=== PATIENT | female | born 1970 | race Caucasian/White ===

== ENCOUNTER 2017-04-21 08:21 | Inpatient (IN) ==
--- NOTE | 2017-04-21 09:53 | Emergency Department Report ---
General Adult HPI - General Chief complaint: Medical Emergency Stated complaint: Migraine, Arm Discoloration Time Seen by Provider: 04/21/17 08:54 Source: patient Mode of arrival: ambulatory Limitations: no limitations - History of Present Illness HPI narrative: 46-year-old female presents to the emergency department with the chief complaint of a typical migraine headache as well as erythema to the left upper extremity. Patient states she has been experiencing a typical dull moderate generalized migraine headache for the past 3 days. No radiation. The patient awoke this morning she noted erythema encompassing the majority of her left upper extremity. She denies any injury or trauma. No other complaints or associated symptoms. Symptoms have been persistent in nature since onset. Patient was at home when the symptoms began. Patient notes that the arm is tender and warm to palpation. Pain in the upper extremity increases with direct palpation. - Related Data Home Medications Medication Instructions Recorded Confirmed Duloxetine HCl [Cymbalta] 60 mg PO BID #0 10/30/12 04/21/17 Pregabalin Cap [Lyrica] 150 mg PO BID #0 10/30/12 04/21/17 Amitriptyline HCl 100 mg PO DAILY #0 tab 02/08/17 04/21/17 Aspirin [Aspir 81] 81 mg PO DAILY #0 02/08/17 04/21/17 Clopidogrel Bisulfate [Plavix] 75 mg PO DAILY #0 tab 02/08/17 04/21/17 Esomeprazole [NEXIUM 20 mg Capsule] 20 mg PO DAILY #0 tab 02/08/17 04/21/17 Furosemide [Lasix] 20 mg PO DAILY #0 tab 02/08/17 04/21/17 Metformin HCl 500 mg PO DAILY #0 tab 02/08/17 04/21/17 Oxycodone HCl/Acetaminophen 1 - 2 tab PO Q4H PRN #0 tab 02/08/17 04/21/17 [Oxycodone-Acetaminophen 5-325] Potassium Chloride 10 meq PO DAILY #0 cap 02/08/17 04/21/17 Tamoxifen Citrate 20 mg PO DAILY #0 02/08/17 04/21/17 Ascorbic Acid [Vitamin C] 250 mg PO DAILY #0 02/24/17 04/21/17 Multivitamin [Multi-Vitamin Daily] 1 tab PO DAILY #0 02/24/17 04/21/17 Cholecalciferol [Vitamin D-3] 1 tab PO DAILY 04/21/17 04/21/17 Cyclobenzaprine [Flexeril] 10 mg PO TID 04/21/17 04/21/17 Levothyroxine Tab [Synthroid] 150 mcg PO DAILY 04/21/17 04/21/17 Magnesium Oxide [Magnesium] 400 mg PO DAILY 04/21/17 04/21/17 Melatonin 3 mg PO HS 04/21/17 04/21/17 Metoprolol Tartrate [Lopressor] 25 mg PO BIDWM 04/21/17 04/21/17 SUMAtriptan [Imitrex] 6 mg SQ PRN PRN 04/21/17 04/21/17 Tramadol [Ultram] 50 mg PO Q6H PRN 04/21/17 04/21/17 Vitamin E [Vitamin E] 400 unit PO DAILY 04/21/17 04/21/17 Allergies Allergy/AdvReac Type Severity Reaction Status Date / Time butorphanol AdvReac Mild ANXIETY Verified 04/21/17 10:15 erythromycin base AdvReac Mild ABDOMINAL Verified 04/21/17 10:15 PAIN Review of Systems Constitutional: Denies: fever, chills Eyes: Denies: eye pain, vision change ENT: Denies: ear pain, throat pain Cardiovascular: Denies: chest pain, dyspnea on exertion Respiratory: Denies: cough, dyspnea Gastrointestinal: Denies: abdominal pain, nausea, vomiting, diarrhea Genitourinary: Denies: urgency, dysuria Musculoskeletal: Denies: back pain, arthralgia Integumentary: Reports: erythema. Denies: rash Neurological: Reports: headache (typical). Denies: numbness Psychiatric: Denies: anxiety, depression Endocrine: Denies: fatigue, heat or cold intolerance Hematological/Lymphatic: Denies: easy bleeding, easy bruising Allergic/Immunologic: Denies: facial swelling, urticaria PFSH Patient Stated Medical History Migraine Yes Hypertension Yes Valvular Heart Disease Yes Pneumonia Yes Sleep Apnea Yes: possibly Diabetes Mellitus Type 2 Yes Other Hematologic Yes: hodgkin's lymphona in past Sepsis Yes Depression Yes Surgical History: Hysterectomy, laminectomy, mastectomy Family History: Hypertension - Social History Smoking status: Unknown if ever smoked Substance use type: does not use Alcohol intake frequency: does not drink Physical Exam - Limitations Limitations: no limitations - General General appearance: alert, in no apparent distress - Normal Exams: Head:: Normocephalic without trauma Eyes:: Pupils are PERRLA w/ EOMI, No scleral icterus, irritation, or foreign bodies noted ENMT:: No facial trauma, nasal exudates, pharyngeal erythema, or exudates are noted Dental: No fractured, loose, or missing teeth noted Neck:: Full range of motion, without adenopathy, JVD, bruits or thyromegaly Chest/Respirations:: Clear all bedoya, with good airflow, and symmetry bilaterally Cardiovascular:: Regular rate and rhythm, without murmur or gallop, Pulses 2+ all extremities, capillary refill, <2 seconds all extremities Abdomen:: Bowel sounds positive, soft, non-tender, non-distended, no hepatosplenomegaly, masses or bruits noted Lymphatic:: No lymphadenopathy, or lymphedema noted Musculoskeletal:: No tenderness, or deformity noted, good range of motion, all extremities Integumentary:: No rashes, hives, or bruising noted, hair and nails, without abnormality (left upper extremity - effusively erythematous and warm to palpation. Tender to palpation. The erythema seems to extend from approximately the wrist up to the bicep. Patient has full range of motion of the joint. Pulses are intact. Sensation intact. Capillary refill less than 2. Skin is intact. No sign of abscess. No focal bony tenderness.) Neurological:: Patient is alert, and oriented, cranial nerves, motor/sensory/ cerebellar, exams w/o gross deficits, to observation Psychiatric:: Patient exhibits, appropriate attention, emotion and affect Course Vital Signs Pulse Rate 106 H 04/21/17 08:45 Respiratory Rate 20 04/21/17 08:45 Pulse Oximetry 92 04/21/17 08:45 Temperature 96.3 F L 04/22/17 15:57 Pulse Rate 84 04/22/17 15:57 Respiratory Rate 16 04/22/17 15:57 Blood Pressure 113/65 04/22/17 15:57 Pulse Oximetry 96 04/22/17 15:57 Medical Decision Making - [facility] Narrative Medical decision making narrative: Labs / imaging were discussed in detail with the patient and questions are answered. Patient is given 1 L normal saline intravenously. She is started on Zosyn/vancomycin intravenously at 1032 when sepsis is considered secondary to cellulitis after no other cause is found. Patient's neck is supple. Patient does not require 30 mL/kg of normal saline hydration as she is not hypotensive and she does not have a lactic acid greater than 4 in the emergency Department. Patient is admitted to the hospital in improved condition. She is given analgesic pain medication with improvement of symptoms. Patient is admitted to the service of Dr. Ivey in improved condition. Patient is in agreement with the current plan of management. Accepting physician is in agreement with the current plan of management with no further orders. - Differential Diagnosis cellulitis, lymphangitis, abscess, migraine headache - Lab Data Result diagrams: 04/22/17 04:34 04/22/17 04:34 Lab Results 04/21/17 04/21/17 04/21/17 Range/Units 09:15 09:15 09:15 WBC 13.9 H (4.5-11.0) T/MM3 RBC 4.29 (4.00-5.20) M/MM3 Hgb 12.4 (12-16) GM/DL Hct 38.7 (36-46) % MCV 90.2 (80-100) UM3 MCH 28.9 (26-34) UUG MCHC 32.0 (31-37) GM/DL RDW Std Deviation 44.3 (36.9-50.2) FL Plt Count 196 (130-400) T/MM3 MPV 10.1 (9.4-12.4) UM3 Immature Gran % (Auto) 0.2 (0.0-0.5) % Neut % (Auto) 84.8 H (33-66) % Lymph % (Auto) 8.5 L (23-45) % [place] % (Auto) 6.2 (0-9.0) % Eos % (Auto) 0.2 (0-4) % Baso % (Auto) 0.1 (0-2) % Neut # 11.8 H (1.8-7.7) T/MM3 Lymph # 1.2 (1-4.8) T/MM3 [place] # 0.9 H (0-0.8) T/MM3 Eos # 0.0 (0-0.5) T/MM3 Baso # 0.0 (0-0.2) T/MM3 Abs Immat Gran (auto) 0.03 (0.00-0.03) T/MM3 Turbidity 20 (0-20) Sodium 139 (134-144) MEQ/L Potassium 4.4 (3.6-5) MEQ/L Chloride 100 (98-107) MEQ/L Carbon Dioxide 24 (22-30) MEQ/L Anion Gap 15 (5-15) MEQ/L BUN 16.0 (7-17) MG/DL Creatinine 0.8 (0.7-1.2) MG/DL GFR Calculation 78 BUN/Creatinine Ratio 20 (6-26) RATIO Glucose 168 H (65-110) MG/DL Calculated Osmolality 273 (261-280) MOSM/KG Calcium 9.3 (8.4-10.2) MG/DL Total Bilirubin 0.50 (0.20-1.30) MG/DL Icterus Index 2 (0-7) AST 34 (14-36) U/L ALT 47 (9-52) U/L Alkaline Phosphatase 107 (38-126) U/L Total Protein 7.7 (6.3-8.2) G/DL Albumin 4.5 (3.5-5.0) G/DL Globulin 3.2 (2.4-3.6) G/DL Albumin/Globulin Ratio 1.4 (1.1-2.2) RATIO Plasma Lactate 2.9 H (0.6-2.2) MMOL/L Procalcitonin < 0.05 NG/ML Specimen Hemolysis 15 (0-25) - Radiology Data L Radius/Ulna - Negative. L Humerus: Negative. LUE Duplex US: Negative. Disposition Clinical Impression: cellulitis with sepsis Disposition: 02 To [facility] Acute Care Condition: Stable Time of Disposition: 10:30 (Admit. Dr. Ivey. ) - Seen By: physician
--- NOTE | 2017-04-21 10:10 | Ultrasound Report ---
Indication: Left Arm redness for one day, R/O DVT PROCEDURE: US venous doppler UE LT: Encounter: Initial Comparison: None Technique: Color Doppler duplex and grayscale sonographic imaging of the left upper extremity was performed. FINDINGS: There is no evidence for acute deep venous thrombosis in the left arm. The left internal jugular, subclavian, axillary and paired brachial veins were evaluated; compression and augmentation were applied where possible. In addition, color and pulsed Doppler demonstrate appropriate spontaneous flow, cardiac pulsatility and variation with respiration. There is poor compressibility of an unnamed accessory vein near the proximal brachial vein that could contain thrombus. IMPRESSION: No evidence of acute DVT in the left upper extremity. Possible superficial thrombophlebitis. .
[2017-04-21] MEDS ORDERED: NS 1,000 ML IV ONE (10:15)
[2017-04-21] MEDS ORDERED: ACETAMINOPHEN 500 MG TABLET PO PRN (10:19)
--- NOTE | 2017-04-21 10:20 | XRay Report ---
Indication: CELLULITIS PROCEDURE: XR rad/uln LT 2V: Encounter: Initial Comparison: None Findings: There is no acute fracture, dislocation or malalignment identified. Impression: No acute osseous abnormality. .
--- NOTE | 2017-04-21 10:21 | XRay Report ---
Indication: cellulitis PROCEDURE: XR humerus LT: Encounter: Initial Comparison: None Findings: There is no acute fracture, dislocation or malalignment identified. Impression: No acute osseous abnormality. .
[2017-04-21] MEDS ORDERED: PIPERACILLIN/TAZOBACTAM 4.5 GM in NS 100 ML IV ONE (10:32)
[2017-04-21] MEDS ORDERED: KETOROLAC 30 MG/ML INJECTION IVP ONE (13:19)
[2017-04-21] MEDS ORDERED: PROMETHAZINE 25 MG INJECTION IVP ONE (13:21)
--- NOTE | 2017-04-21 13:27 | History & Physical Report ---
<Gaviota Matamoros - Last Filed: 04/21/17 13:55> History of Present Illness Date: Chief complaint: Fever, left arm redness HPI: Amber Hernandez is a 46 y/o lady who noticed some left arm pain before going to bed on 04/20/17. She woke up around 0300 and noticed it was bright red and was a little puffy. She had a fever and chills at home. She's also had a migraine for the last 3 days, unrelieved with her usual medications (excedrine migraine, sumatriptan, percocet, muscle relaxer). Along with her migraine, she has nausea , photophobia, and mild lightheadedness and weakness. She reports a tiny cough from the pneumonia she had a few weeks ago, but it's nonproductive and overall much improved (she was admitted to [facility] 03/31-04/03). She has an upset stomach but no pain. She hasn't been eating very well but has been trying to keep up on fluids. She has been sleeping a lot - trying to sleep off the migraine. She's having some trouble remembering details. She has generalized muscular pain secondary to fibromyalgia, which has been worse than usual. No changes in urination or bowel habits but does have some abdominal bloating. Denies rashes but she tends to bruise easily. She denies any injuries or abrasions to her left arm. In the ED, she was found to have a WBC of 13.9 and lactate of 2.9. She was febrile at 101 in the ED and was also tachycardic. Chemistries were unremarkable. An ultrasound of her left arm showed superficial thrombophlebitis but no DVT. She was started on Vancomycin and Zosyn for cellulitis, and admitted under the hospitalist service to inpatient status. LOS is expected to exceed 2 overnights for need of aggressive treatment for severe sepsis and systemic antibiotics. Review of Systems All systems: reviewed and no additional remarkable complaints except as stated - Constitutional Constitutional: Present: chills, daytime sleepiness, fatigue, fever(s), headache (s), lethargy - EENMT Eyes: Present: photophobia Mouth/Throat: Present: dry mouth (ever since chemo). Absent: sore throat - Cardiovascular Cardiovascular: Absent: chest pain, palpitations - Respiratory Respiratory: Present: as per HPI, cough - Gastrointestinal Gastrointestinal: Present: as per HPI - Musculoskeletal Musculoskeletal: Present: myalgias - Neurological Neurological: Present: as per HPI, headache(s), memory loss - Psychiatric Psychiatric: Present: abnormal sleep pattern, anxiety, depression - Endocrine Endocrine: Present: heat intolerance - Hematologic/Lymphatic Hematologic/Lymphatic: Present: easy bruising PFSH Breast cancer - started chemo 03/26/16 and completed in the summer Migraines Hx of non-Hodgkin's lymphoma as a teenager Moderate - secondary to radiation as a child - resolved after AOV replacement Hypothyroidism Fibromyalgia Chronic back pain Anxiety Depression Obesity DM2 Surgical History: Echo in January 2017 - 4 valve mild regurgitation; bovine aortic valve, EF 70%. Deep axillary lymph node excision 12/09/2015. Modified radical mastectomy with sentinel node biopsy bilateral 12/09/2015. Reconstruction of the breast with tissue expanders 12/09/2015. Laminectomy with fusion of the lumbar spine 2012. Vaginal hysterectomy with nephrectomy 2007 (ovaries are retained). section. May 2015-negative treadmill stress test for ischemia based on clinical and EKG criteria. Exercise was limited by lightheadedness as well as shortness of breath. May 2015- echocardiogram shows normal systolic function with EF of 62%, mild diastolic dysfunction, normal chamber sizes, moderately calcified aortic valve with moderate stenosis, mitral annular calcification with mild mitral regurg, mild aortic regurg, mild tricuspid regurg, no pulmonary hypertension. Family History: Mother has had COPD, cardiovascular disease, diabetes, hypertension, obesity, snoring, stroke Father had cardiovascular disease, brainstem stroke - Both parents with valvular heart disease issues Grandfather had restless leg syndrome - Social History Smoking status: Former smoker Substance use type: does not use Social history: PCP - Dr. Yost Onc - Dr. Ben Kwan CV - Dr. Jovanni Pool Neuro - in [place] Sleep study planned for the end of April Medications Home Medications Medication Instructions Recorded Confirmed Type Duloxetine HCl [Cymbalta] 60 mg PO BID #0 10/30/12 04/21/17 History Pregabalin Cap [Lyrica] 150 mg PO BID #0 10/30/12 04/21/17 History Amitriptyline HCl 100 mg PO DAILY #0 tab 02/08/17 04/21/17 History Aspirin [Aspir 81] 81 mg PO DAILY #0 03/28/17 06/08/17 History Clopidogrel Bisulfate [Plavix] 75 mg PO DAILY #0 tab 02/08/17 04/21/17 History Esomeprazole [NEXIUM 20 mg Capsule] 20 mg PO DAILY #0 tab 02/08/17 04/21/17 History Furosemide [Lasix] 20 mg PO DAILY #0 tab 02/08/17 04/21/17 History Metformin HCl 500 mg PO DAILY #0 tab 02/08/17 04/21/17 History Oxycodone HCl/Acetaminophen 1 - 2 tab PO Q4H PRN #0 tab 02/08/17 04/21/17 History [Oxycodone-Acetaminophen 5-325] Potassium Chloride 10 meq PO DAILY #0 cap 02/08/17 04/21/17 History Tamoxifen Citrate 20 mg PO DAILY #0 02/08/17 04/21/17 History Ascorbic Acid [Vitamin C] 250 mg PO DAILY #0 02/24/17 04/21/17 History Multivitamin [Multi-Vitamin Daily] 1 tab PO DAILY #0 02/24/17 04/21/17 History Cholecalciferol [Vitamin D-3] 1 tab PO DAILY 04/21/17 04/21/17 History Cyclobenzaprine [Flexeril] 10 mg PO TID 04/21/17 04/21/17 History Levothyroxine Tab [Synthroid] 150 mcg PO DAILY 04/21/17 04/21/17 History Magnesium Oxide [Magnesium] 400 mg PO DAILY 04/21/17 04/21/17 History Melatonin 3 mg PO HS 04/21/17 04/21/17 History Metoprolol Tartrate [Lopressor] 25 mg PO BIDWM 04/21/17 04/21/17 History SUMAtriptan [Imitrex] 6 mg SQ PRN PRN 04/21/17 04/21/17 History Tramadol [Ultram] 50 mg PO Q6H PRN 04/21/17 04/21/17 History Vitamin E [Vitamin E] 400 unit PO DAILY 04/21/17 04/21/17 History Allergies Allergy/AdvReac Type Severity Reaction Status Date / Time butorphanol AdvReac Mild ANXIETY Verified 04/21/17 10:15 erythromycin base AdvReac Mild ABDOMINAL Verified 04/21/17 10:15 PAIN Exam Vital Signs: Temp Pulse Resp BP Pulse Ox 99.0 F 101 H 18 121/56 92 04/21/17 12:28 04/21/17 12:28 04/21/17 12:28 04/21/17 12:28 04/21/17 12:28 Height: 1.75 m Weight: 107 kg Body Mass Index: 34.8 - Constitutional Present: mild distress, well nourished, well developed, obese - Routine HEENT Exam Comments: wears dark sunglasses due to photophobia - Routine Neck Exam Present: supple, full ROM - Routine Respiratory Exam Present: CTA bilaterally - Routine Cardiovascular Exam Present: S1, S2, murmur (3/6 systolic ) - Routine Abdominal Exam Present: soft, non tender, distended (mild). Absent: normoactive bowel sounds ( slightly hypoactive) - Routine Extremities Exam Present: no edema, pulses intact - Routine Skin Exam Present: erythema, warm Comments: Left arm: erythematous, slight swelling, and warm to touch. Ernest up the left forearm on the radial side there are 2 small scabbed abrasions; possibly bug bites. When I commented, her sister stated that they were cleaning out their father's shed a week ago and it's possible she was bit or accidentally scraped herself. - Routine Neurological Exam Present: alert, oriented X3 - Routine Psychiatric Exam Present: normal affect, normal thought process, good insight, good judgment Results - Labs CBC & Chem 7: 04/21/17 09:15 04/21/17 09:15 Assessment and Plan (1) Severe sepsis Current visit: Yes Status: Acute (2) Cellulitis Current visit: Yes Status: Acute (3) Migraine Current visit: Yes Status: Acute (4) History of aortic valve replacement Current visit: Yes Status: Chronic (5) Breast cancer Problem details: completed chemo in 2015 s/p b/l mastectomy Current visit: Yes Status: Resolved (6) Superficial thrombophlebitis Current visit: Yes Status: Acute DVT Prophylaxis: SCD's Resuscitation Status: Full Code Assessment and Plan: Admit to inpatient status under the hospitalist service. 1. Severe sepsis secondary to left arm cellulitis -SIRS = fever, tachycardia, leukocytosis -Severe sepsis = lactate of 2.9 -Vancomycin + Zosyn. Consult Pharmacy for Vanco dosing. -F/U on BC results 2. Superficial thrombophlebitis -Sono neg for DVT -Supportive care 3. Migraine -unrelieved with usual home treatment -Will give Toradol + phenergan (usually effective in relieving migraine) 4. Breast cancer, immunocompromised -hx of chemo and b/l mastectomy -continue Tamoxifen -sees Dr. Kwan in [place] 5. Type 2 DM -Per family, A1c is decreasing -Monitor blood glucose & start consistent carb diet -Continue Metformin 6. AOV replacement -Continue ASA + Plavix -Sees Dr. Pool in [place] -Echo done in January 2017 - mild valvular regurgitation; EF 70% 7. Recent hospitalization for pneumonia -03/31/17-04/03/17 -clinically improved and lungs were clear 8. Depression -continue antidepressants -offered psych consult, but pt declined -F/U in outpt setting - has seen counselor in the recent past Discussed with Dr. Ivey Sepsis Assessment - Evaluation Sepsis screening result: No Definite Risk Possible source: skin/soft tissue SIRS Criteria: temperature > or equal to 100.4, pulse > or equal to 90 beats/ minute, WBC > or equal to 12,000 Severe Sepsis: lactate > or equal to 2.0 mg/dl - Focused Exam Vital Signs Temp Pulse Resp BP Pulse Ox 04/21/17 12:28 99.0 F 101 H 18 121/56 92 04/21/17 12:13 99.3 F 102 H 20 128/67 93 Hospital Course Summary Disclaimer: The visit summary below is not to be considered part of the above Progress Note. Hospital Course: 04/21/17 14:47 Admit to inpatient status under the hospitalist service. 1. Severe sepsis secondary to left arm cellulitis -SIRS = fever, tachycardia, leukocytosis -Severe sepsis = lactate of 2.9 -Vancomycin + Zosyn. Consult Pharmacy for Vanco dosing. -F/U on BC results 2. Superficial thrombophlebitis -Sono neg for DVT -Supportive care 3. Migraine -unrelieved with usual home treatment -Will give Toradol + phenergan (usually effective in relieving migraine) 4. Breast cancer, immunocompromised -hx of chemo and b/l mastectomy -continue Tamoxifen -sees Dr. Kwan in [place] 5. Type 2 DM -Per family, A1c is decreasing -Monitor blood glucose & start consistent carb diet -Continue Metformin 6. AOV replacement -Continue ASA + Plavix -Sees Dr. Pool in [place] -Echo done in January 2017 - mild valvular regurgitation; EF 70% 7. Recent hospitalization for pneumonia -03/31/17-04/03/17 -clinically improved and lungs were clear 8. Depression -continue antidepressants -offered psych consult, but pt declined -F/U in outpt setting - has seen counselor in the recent past <Inna Ivey - Last Filed: 04/21/17 18:04> History of Present Illness Date: 04/21/17 Date: [id number] [facility] Patient Stated Medical History Migraine Yes Heart Murmur Yes Hypertension Yes Valvular Heart Disease Yes Pneumonia Yes Sleep Apnea Yes: possibly Diabetes Mellitus Type 2 Yes Other GI Yes: heart burn Other Hematologic Yes: hodgkin's lymphona in past Cellulitis Yes Sepsis Yes Depression Yes Exam Vital Signs: Temp Pulse Resp BP Pulse Ox 98.1 F 100 18 94/56 93 04/21/17 15:52 04/21/17 15:52 04/21/17 15:52 04/21/17 15:52 04/21/17 15:52 Height: 1.75 m Weight: 107 kg Results - Labs CBC & Chem 7: 04/21/17 09:15 04/21/17 09:15 Assessment and Plan (1) Cellulitis Current visit: Yes Status: Acute (2) Migraine Current visit: Yes Status: Acute (3) History of aortic valve replacement Current visit: Yes Status: Chronic (4) Breast cancer Problem details: completed chemo in 2015 s/p b/l mastectomy Current visit: Yes Status: Resolved (5) Severe sepsis Current visit: Yes Status: Acute (6) Superficial thrombophlebitis Current visit: Yes Status: Acute Assessment and Plan: I have independently evaluated and examined this patient. I reviewed the chart, the patient's history, and the [employer]'s documented findings as above. We discussed and formulated the assessment and plan as above with additions as below: Mrs. Hernandez was seen with her at the bedside. She describes abrupt onset of discomfort and erythema in the left upper extremity yesterday evening without preceding injury or recognized insect bite. This was followed by fever and chills this morning prompting ER evaluation was significant left upper extremity cellulitis with leukocytosis and tachycardia were identified. On examination the patient is fatigued but notes that migraine has improved with treatment offered earlier today. There is moderate erythema of the left arm extending from just above the wrist to approximately 10 cm below the shoulder with sparing of the left antecubital fossa. No adenopathy in the left axilla is appreciated. There is moderate edema of the left arm acutely but patient denies chronic lymphedema. Lungs are clear and cardiac rhythm regular with 2-3/6 systolic murmur. Abdomen soft, moderately obese, nontender. Venous Doppler left upper extremity reviewed-possible superficial thrombophlebitis involving accessory vein near proximal brachial. X-rays of the left humerus and forearm also been reviewed and demonstrate no acute bony abnormality or soft tissue abnormality. Sepsis criteria as noted, lactic acid 2.9-2.8. Diabetes typically well controlled with an A1c of 6.3 approximately 2 months ago per patient report. Broad-spectrum antibiotics initiated due to combined risk factors of prior left axillary lymph node dissection and diabetes although infection is likely gram- positive. Cultures pending. Sepsis Assessment - Focused Exam Vital Signs Temp Pulse Resp BP Pulse Ox 04/21/17 15:52 98.1 F 100 18 94/56 93 04/21/17 12:28 99.0 F 101 H 18 121/56 92 04/21/17 12:13 99.3 F 102 H 20 128/67 93 Hospital Course Summary Disclaimer: The visit summary below is not to be considered part of the above Progress Note.
[2017-04-21] MEDS: CYCLOBENZAPRINE 10 MG TABLET PO SCH ×2 (15:55→20:58)
[2017-04-21] MEDS: PIPERACILLIN/TAZOBACTAM 3.375 GM in NS 100 ML IV SCH ×2 (17:05→23:33)
--- NOTE | 2017-04-21 17:29 | Pharmacy Consult-Antibiotics ---
Pharmacy Consult-Vancomycin - Laboratory Information WBC 13.9 T/MM3 (4.5-11.0) H 04/21/17 09:15 BUN 16.0 MG/DL (7-17) 04/21/17 09:15 Creatinine 0.8 MG/DL (0.7-1.2) 04/21/17 09:15 Procalcitonin < 0.05 NG/ML 04/21/17 09:15 - Consult Information Vancomycin Protocol: initial 46 y.o. Female admitted to Medical floor for Severe sepsis secondary to left arm cellulitis -Vancomycin + Zosyn started empirically. Pharmacy protocol for Vanco dosing goal Vanco trough range= 15-20 mcg/ml Patient history of recent admission to [facility] [place] 03/[place]/17. Will start Vanco at therapeutic dose from that admission. Vancomycin 2 gm x 1 dose then, Vancomycin 1,500 mg IV Q8H. Pharmacy will monitor and adjust as needed. Thank you for the protocol, Caridad Blanco RPh
[2017-04-21] MEDS: DULOXETINE 60 MG CAPSULE PO SCH (20:49)
[2017-04-21] MEDS: PREGABALIN 150 MG CAPSULE PO SCH (20:49)
[2017-04-21] MEDS: OXYCODONE/APAP 5 MG/325 MG TABLET PO PRN (20:49)
[2017-04-21] MEDS: MELATONIN 1 MG TABLET PO SCH (23:33)
[2017-04-22] MEDS: PIPERACILLIN/TAZOBACTAM 3.375 GM in NS 100 ML IV SCH ×3 (06:36→19:26)
[2017-04-22] MEDS: PANTOPRAZOLE 20 MG TABLET PO SCH (06:36)
[2017-04-22] MEDS: LEVOTHYROXINE 150 MCG TABLET PO SCH (06:36)
[2017-04-22] MEDS: MULTI-VITAMIN PLAIN TABLET PO SCH (08:53)
[2017-04-22] MEDS: CYCLOBENZAPRINE 10 MG TABLET PO SCH ×3 (08:54→21:53)
[2017-04-22] MEDS: MAGNESIUM OXIDE 400 MG TABLET PO SCH (08:54)
[2017-04-22] MEDS: METFORMIN 500 MG TABLET PO SCH (08:54)
[2017-04-22] MEDS: TAMOXIFEN 10 MG TABLET PO SCH (08:54)
[2017-04-22] MEDS: DULOXETINE 60 MG CAPSULE PO SCH ×2 (08:54→21:53)
[2017-04-22] MEDS: ASPIRIN *EC* 81 MG TABLET PO SCH (08:54)
[2017-04-22] MEDS: VITAMIN E 400 UNIT CAPSULE PO SCH (08:54)
[2017-04-22] MEDS: ASCORBIC ACID 500 MG TABLET PO SCH (08:54)
[2017-04-22] MEDS: CLOPIDOGREL 75 MG TABLET PO SCH (08:55)
[2017-04-22] MEDS: PREGABALIN 150 MG CAPSULE PO SCH ×2 (08:55→21:53)
[2017-04-22] MEDS ORDERED: FUROSEMIDE 20 MG TABLET PO SCH (09:00)
[2017-04-22] MEDS: OXYCODONE/APAP 5 MG/325 MG TABLET PO PRN (09:12)
[2017-04-22] MEDS: TRAMADOL 50 MG TABLET PO PRN (16:01)
[2017-04-22] MEDS ORDERED: KETOROLAC 15 MG/ML INJECTION IM PRN (16:48)
[2017-04-22] MEDS ORDERED: DiphenhydrAMINE 25 MG CAPSULE PO PRN (16:48)
--- NOTE | 2017-04-22 16:51 | Progress Note ---
<SaturninoGaviota Abel - Last Filed: 04/22/17 16:47> Subjective: Amber has noticed an improvement in redness to her left arm; but it is itchy and bumpy today. She's also noticed increased tightness to her right arm. She has a mild residual migraine, but overall much improved from yesterday - she no longer needs lights off and sunglasses and her nausea has resolved. She denies shortness of breath. Objective Vital signs: Temp Pulse Resp BP Pulse Ox 96.3 F L 84 16 113/65 96 04/22/17 15:57 04/22/17 15:57 04/22/17 15:57 04/22/17 15:57 04/22/17 15:57 Weight: 108.1 kg - Constitutional Present: mild distress, well nourished, well developed, obese - Routine HEENT Exam Eye: Absent: conjunctival icterus ENT: Present: oropharynx clear - Routine Respiratory Exam Present: CTA bilaterally - Routine Cardiovascular Exam Present: S1, S2, murmur - Routine Abdominal Exam Present: soft, normoactive bowel sounds, non distended, non tender - Routine Extremities Exam Present: pulses intact, normal capillary refill Comments: swelling to both arms L>R - Routine Musculoskeletal Exam Musculoskeletal: no clubbing or cyanosis - Routine Skin Exam Present: erythema (improved to left arm), warm, rash (papular pruritic rash overlying erythemic areas on left arm) - Routine Neurological Exam Present: alert, oriented X3 - Routine Psychiatric Exam Present: normal affect, normal thought process Results - Labs CBC & Chem 7: 04/22/17 04:34 04/22/17 04:34 Assessment and Plan (1) Severe sepsis Current visit: Yes Status: Acute (2) Cellulitis Current visit: Yes Status: Acute (3) Migraine Current visit: Yes Status: Acute (4) History of aortic valve replacement Current visit: Yes Status: Chronic (5) Breast cancer Problem details: completed chemo in 2015 s/p b/l mastectomy Current visit: Yes Status: Resolved (6) Superficial thrombophlebitis Current visit: Yes Status: Acute Assessment and Plan: 1. Severe sepsis secondary to Left arm cellulitis -cont vancomycin and zosyn, day #2 -bc neg after 1 day -leukocytosis resolved -benadryl prn itching 2. Migraine -improved -continue tramadol as needed -one time dose of toradol available if needed 3. positive fluid balance -consider extra dose of lasix -weight up 1 kg 4. DM2 -under fairly good control -cont metformin and diabetic diet Sepsis Assessment - Evaluation Sepsis screening result: No Definite Risk SIRS Criteria: temperature > or equal to 100.4, pulse > or equal to 90 beats/ minute, WBC > or equal to 12,000 Severe Sepsis: lactate > or equal to 2.0 mg/dl - Focused Exam Vital Signs Temp Pulse Resp BP Pulse Ox 04/22/17 15:57 96.3 F L 84 16 113/65 96 04/22/17 07:28 98.1 F 88 18 137/79 94 Respiratory exam: Present: CTA bilaterally Cardiovascular exam: Present: S1, S2, murmur (3/6 systolic ) Hospital Course Summary Disclaimer: The visit summary below is not to be considered part of the above Progress Note. Hospital Course: 04/21/17 14:47 Admit to inpatient status under the hospitalist service. 1. Severe sepsis secondary to left arm cellulitis -SIRS = fever, tachycardia, leukocytosis -Severe sepsis = lactate of 2.9 -Vancomycin + Zosyn. Consult Pharmacy for Vanco dosing. -F/U on BC results 2. Superficial thrombophlebitis -Sono neg for DVT -Supportive care 3. Migraine -unrelieved with usual home treatment -Will give Toradol + phenergan (usually effective in relieving migraine) 4. Breast cancer, immunocompromised -hx of chemo and b/l mastectomy -continue Tamoxifen -sees Dr. Kwan in [place] 5. Type 2 DM -Per family, A1c is decreasing -Monitor blood glucose & start consistent carb diet -Continue Metformin 6. AOV replacement -Continue ASA + Plavix -Sees Dr. Pool in [place] -Echo done in January 2017 - mild valvular regurgitation; EF 70% 7. Recent hospitalization for pneumonia -03/31/17-04/03/17 -clinically improved and lungs were clear 8. Depression -continue antidepressants -offered psych consult, but pt declined -F/U in outpt setting - has seen counselor in the recent past 04/22/17 1. Severe sepsis secondary to Left arm cellulitis -cont vancomycin and zosyn, day #2 -bc neg after 1 day -leukocytosis resolved -benadryl prn itching 2. Migraine -improved -continue tramadol as needed -one time dose of toradol available if needed 3. positive fluid balance -consider extra dose of lasix -weight up 1 kg 4. DM2 -under fairly good control -cont metformin and diabetic diet <Inna Ivey - Last Filed: 04/22/17 18:10> Objective Vital signs: Temp Pulse Resp BP Pulse Ox 96.3 F L 84 16 113/65 96 04/22/17 15:57 04/22/17 15:57 04/22/17 15:57 04/22/17 15:57 04/22/17 15:57 Results - Labs CBC & Chem 7: 04/22/17 04:34 04/22/17 04:34 Assessment and Plan (1) Cellulitis Current visit: Yes Status: Acute (2) Migraine Current visit: Yes Status: Acute (3) History of aortic valve replacement Current visit: Yes Status: Chronic (4) Breast cancer Problem details: completed chemo in 2015 s/p b/l mastectomy Current visit: Yes Status: Resolved (5) Severe sepsis Current visit: Yes Status: Acute (6) Superficial thrombophlebitis Current visit: Yes Status: Acute Assessment and Plan: I have independently evaluated and examined this patient. I reviewed the chart, the patient's history, and the TELEMARKETING FUNDRAISER's documented findings as above. We discussed and formulated the assessment and plan as above with additions as below: Amber reports improvement in the left arm erythema and pain with slight reduction in edema. There's been increased pruritus as previously noted. Exam reveals fading erythema although the distribution is minimally changed from yesterday. +2 edema left upper extremity, no lower extremity edema Cardiac rhythm is regular with systolic murmur present. Leukocytosis is resolved, clinically improving. Continue same. Lasix increased to 40 mg tomorrow morning. Benadryl added as needed. Senokot ordered for patient reported constipation. As regard section on sepsis below as it is auto populating due to computer error and does not reflect current exam. Sepsis Assessment - Focused Exam Vital Signs Temp Pulse Resp BP Pulse Ox 04/22/17 15:57 96.3 F L 84 16 113/65 96 04/22/17 07:28 98.1 F 88 18 137/79 94 Hospital Course Summary Disclaimer: The visit summary below is not to be considered part of the above Progress Note.
[2017-04-22] MEDS: DiphenhydrAMINE 25 MG CAPSULE PO PRN (20:05)
[2017-04-22] MEDS: SENNA + DOCUSATE TABLET PO SCH (21:51)
[2017-04-22] MEDS: MELATONIN 1 MG TABLET PO SCH (21:52)
[2017-04-22] MEDS: AMITRIPTYLINE 100 MG TABLET PO SCH (21:53)
[2017-04-23] MEDS: PIPERACILLIN/TAZOBACTAM 3.375 GM in NS 100 ML IV SCH ×3 (00:21→13:21)
[2017-04-23] MEDS: TRAMADOL 50 MG TABLET PO PRN (00:21)
[2017-04-23] MEDS: DiphenhydrAMINE 25 MG CAPSULE PO PRN ×5 (00:21→23:23)
[2017-04-23] MEDS ORDERED: NS FLUSH BAG 500ml IV PRN (01:00)
[2017-04-23] MEDS: SALINE FLUSH 10ml SYRINGE IV PRN ×3 (01:12→16:32)
[2017-04-23] MEDS: OXYCODONE/APAP 5 MG/325 MG TABLET PO PRN (05:47)
[2017-04-23] MEDS: PANTOPRAZOLE 20 MG TABLET PO SCH (05:47)
[2017-04-23] MEDS: LEVOTHYROXINE 150 MCG TABLET PO SCH (05:47)
--- NOTE | 2017-04-23 08:05 | Pharmacy Consult-Antibiotics ---
Pharmacy Consult-Vancomycin - Laboratory Information WBC 5.1 T/MM3 (4.5-11.0) 04/23/17 04:21 BUN 15.0 MG/DL (7-17) 04/23/17 04:21 Creatinine 0.8 MG/DL (0.7-1.2) 04/23/17 04:21 Procalcitonin < 0.05 NG/ML 04/21/17 09:15 Vancomycin Trough 20.55 UG/ML (15-20) H 04/23/17 04:21 - Consult Information VANCOMYCIN CONSULT: Vancomycin Trough = 20.5 mcg/ml. Today's SCr = 0.8 mg/dl. Will give Vancomycin 1,250 mg IV q8hrs. Will continue to monitor and make adjustments accordingly. Thank you.
[2017-04-23] MEDS: ASPIRIN *EC* 81 MG TABLET PO SCH (09:07)
[2017-04-23] MEDS: MAGNESIUM OXIDE 400 MG TABLET PO SCH (09:07)
[2017-04-23] MEDS: MULTI-VITAMIN PLAIN TABLET PO SCH (09:07)
[2017-04-23] MEDS: DULOXETINE 60 MG CAPSULE PO SCH ×2 (09:08→21:46)
[2017-04-23] MEDS: SENNA + DOCUSATE TABLET PO SCH ×2 (09:08→21:46)
[2017-04-23] MEDS: ASCORBIC ACID 500 MG TABLET PO SCH (09:08)
[2017-04-23] MEDS: VITAMIN E 400 UNIT CAPSULE PO SCH (09:08)
[2017-04-23] MEDS: TAMOXIFEN 10 MG TABLET PO SCH (09:08)
[2017-04-23] MEDS: CYCLOBENZAPRINE 10 MG TABLET PO SCH ×3 (09:08→21:46)
[2017-04-23] MEDS: CLOPIDOGREL 75 MG TABLET PO SCH (09:08)
[2017-04-23] MEDS: METFORMIN 500 MG TABLET PO SCH (09:09)
[2017-04-23] MEDS: PREGABALIN 150 MG CAPSULE PO SCH ×2 (09:09→21:46)
[2017-04-23] MEDS: FUROSEMIDE 40 MG TABLET PO SCH (09:09)
[2017-04-23] MEDS ORDERED: FUROSEMIDE 20 MG/2 ML INJECTION IVP ONE (16:01)
[2017-04-23] MEDS: PENICILLIN V POTASSIUM 250 MG TABLET PO SCH (16:33)
[2017-04-23] MEDS: CETIRIZINE 10 MG TABLET PO SCH (16:33)
--- NOTE | 2017-04-23 16:49 | Progress Note ---
Objective Vital signs: Temp Pulse Resp BP Pulse Ox 96 F L 77 16 132/54 95 04/23/17 16:00 04/23/17 16:00 04/23/17 16:00 04/23/17 16:00 04/23/17 16:00 Weight: 110.7 kg - Constitutional Present: mild distress, well nourished, well developed, obese Results - Labs CBC & Chem 7: 04/23/17 04:21 04/23/17 04:21 Assessment and Plan (1) Cellulitis Current visit: Yes Status: Acute (2) Migraine Current visit: Yes Status: Acute (3) History of aortic valve replacement Current visit: Yes Status: Chronic (4) Breast cancer Problem details: completed chemo in 2015 s/p b/l mastectomy Current visit: Yes Status: Resolved (5) Severe sepsis Current visit: Yes Status: Acute (6) Superficial thrombophlebitis Current visit: Yes Status: Acute Assessment and Plan: I have independently evaluated and examined this patient. I reviewed the chart, the patient's history, and the SE[employer] M[employer] OPERATOR's documented findings as above. We discussed and formulated the assessment and plan as above with additions as below: Amber reports improvement in the left arm erythema and pain with slight reduction in edema. There's been increased pruritus as previously noted. Exam reveals fading erythema although the distribution is minimally changed from yesterday. +2 edema left upper extremity, no lower extremity edema Cardiac rhythm is regular with systolic murmur present. Leukocytosis is resolved, clinically improving. Continue same. Lasix increased to 40 mg tomorrow morning. Benadryl added as needed. Senokot ordered for patient reported constipation. As regard section on sepsis below as it is auto populating due to computer error and does not reflect current exam. Sepsis Assessment - Evaluation Sepsis screening result: No Definite Risk SIRS Criteria: temperature > or equal to 100.4, pulse > or equal to 90 beats/ minute, WBC > or equal to 12,000 Severe Sepsis: lactate > or equal to 2.0 mg/dl - Focused Exam Vital Signs Temp Pulse Resp BP Pulse Ox 04/23/17 16:00 96 F L 77 16 132/54 95 04/23/17 08:00 97 F 74 16 130/69 100 Respiratory exam: Present: CTA bilaterally Cardiovascular exam: Present: S1, S2, murmur (3/6 systolic ) Hospital Course Summary Disclaimer: The visit summary below is not to be considered part of the above Progress Note. Hospital Course: 04/21/17 14:47 Admit to inpatient status under the hospitalist service. 1. Severe sepsis secondary to left arm cellulitis -SIRS = fever, tachycardia, leukocytosis -Severe sepsis = lactate of 2.9 -Vancomycin + Zosyn. Consult Pharmacy for Vanco dosing. -F/U on BC results 2. Superficial thrombophlebitis -Sono neg for DVT -Supportive care 3. Migraine -unrelieved with usual home treatment -Will give Toradol + phenergan (usually effective in relieving migraine) 4. Breast cancer, immunocompromised -hx of chemo and b/l mastectomy -continue Tamoxifen -sees Dr. Kwan in [place] 5. Type 2 DM -Per family, A1c is decreasing -Monitor blood glucose & start consistent carb diet -Continue Metformin 6. AOV replacement -Continue ASA + Plavix -Sees Dr. Pool in [place] -Echo done in January 2017 - mild valvular regurgitation; EF 70% 7. Recent hospitalization for pneumonia -03/31/17-04/03/17 -clinically improved and lungs were clear 8. Depression -continue antidepressants -offered psych consult, but pt declined -F/U in outpt setting - has seen counselor in the recent past 04/22/17 1. Severe sepsis secondary to Left arm cellulitis -cont vancomycin and zosyn, day #2 -bc neg after 1 day -leukocytosis resolved -benadryl prn itching 2. Migraine -improved -continue tramadol as needed -one time dose of toradol available if needed 3. positive fluid balance -consider extra dose of lasix -weight up 1 kg 4. DM2 -under fairly good control -cont metformin and diabetic diet
--- NOTE | 2017-04-23 19:21 | Progress Note ---
Subjective: Amber reports persistent itching and swelling in her left arm but redness is improved. She's had no further fever. Weight was up today and she feels like she is more swollen in her right arm in addition to the left; nursing notes that her IV infiltrated. She denied dyspnea, chest pain/palpitations, nausea, or lightheadedness. Objective Vital signs: Temp Pulse Resp BP Pulse Ox 96 F L 77 16 132/54 95 04/23/17 16:00 04/23/17 16:00 04/23/17 16:00 04/23/17 16:00 04/23/17 16:00 Weight up 3.7 kg from admission EXAM General-NAD, alert, fluent speech HEENT-conjunctiva clear, conjugate gaze, oral membranes clear Lungs-respirations nonlabored, good airflow, breath sounds clear Cardiac-regular rhythm, S1-S2 Abd-abdomen obese but soft, bowel sounds present, nontender Ext-+1 edema right upper extremity, +2 left upper extremity, trace bilateral ankles Skin-minimal residual erythema in a patchy distribution right forearm in the previously outlined area, above the left elbow there is virtually no erythema. There are small erythematous papules with in the outlined area but no papules or hives outside the area of the cellulitis. Neuro-moving all extremities well Psych-calm, pleasant - Weight: 110.7 kg - Constitutional Present: mild distress, well nourished, well developed, obese Results - Labs CBC & Chem 7: 04/23/17 04:21 04/23/17 04:21 Labs: Blood cultures 2 negative after 48 hours Vancomycin trough 20.55 Accu-Cheks consistently less than 200 Assessment and Plan (1) Cellulitis Current visit: Yes Status: Acute (2) Migraine Current visit: Yes Status: Acute (3) History of aortic valve replacement Current visit: Yes Status: Chronic (4) Breast cancer Problem details: completed chemo in 2015 s/p b/l mastectomy Current visit: Yes Status: Resolved (5) Severe sepsis Current visit: Yes Status: Acute (6) Superficial thrombophlebitis Current visit: Yes Status: Acute (7) Pruritic dermatitis Current visit: Yes Status: Acute (8) Edema Current visit: Yes Status: Acute Assessment and Plan: Cellulitis continues to improve. Convert to oral antibiotics with pen VK 500 mg tid. Persistent edema left upper [id number] by Doppler given superficial thrombophlebitis noted on admission. Edema right upper extremity due to IV infiltrating but weight is up, supplemental Lasix dose given 1 IV. Benadryl increased to 50 mg every 4 when necessary, Zyrtec 10 mg daily scheduled for pruritus. Diabetes well controlled. Hemoglobin has trended down-recheck in a.m. may be dilutional. Sepsis Assessment - Evaluation Sepsis screening result: No Definite Risk SIRS Criteria: temperature > or equal to 100.4, pulse > or equal to 90 beats/ minute, WBC > or equal to 12,000 Severe Sepsis: lactate > or equal to 2.0 mg/dl - Focused Exam Vital Signs Temp Pulse Resp BP Pulse Ox 04/23/17 16:00 96 F L 77 16 132/54 95 04/23/17 08:00 97 F 74 16 130/69 100 Respiratory exam: Present: CTA bilaterally Cardiovascular exam: Present: S1, S2, murmur (3/6 systolic ) Hospital Course Summary Disclaimer: The visit summary below is not to be considered part of the above Progress Note. Hospital Course: 04/21/17 14:47 Admit to inpatient status under the hospitalist service. 1. Severe sepsis secondary to left arm cellulitis -SIRS = fever, tachycardia, leukocytosis -Severe sepsis = lactate of 2.9 -Vancomycin + Zosyn. Consult Pharmacy for Vanco dosing. -F/U on BC results 2. Superficial thrombophlebitis -Sono neg for DVT -Supportive care 3. Migraine -unrelieved with usual home treatment -Will give Toradol + phenergan (usually effective in relieving migraine) 4. Breast cancer, immunocompromised -hx of chemo and b/l mastectomy -continue Tamoxifen -sees Dr. Kwan in [place] 5. Type 2 DM -Per family, A1c is decreasing -Monitor blood glucose & start consistent carb diet -Continue Metformin 6. AOV replacement -Continue ASA + Plavix -Sees Dr. Pool in [place] -Echo done in January 2017 - mild valvular regurgitation; EF 70% 7. Recent hospitalization for pneumonia -03/31/17-04/03/17 -clinically improved and lungs were clear 8. Depression -continue antidepressants -offered psych consult, but pt declined -F/U in outpt setting - has seen counselor in the recent past 04/22/17 1. Severe sepsis secondary to Left arm cellulitis -cont vancomycin and zosyn, day #2 -bc neg after 1 day -leukocytosis resolved -benadryl prn itching 2. Migraine -improved -continue tramadol as needed -one time dose of toradol available if needed 3. positive fluid balance -consider extra dose of lasix -weight up 1 kg 4. DM2 -under fairly good control -cont metformin and diabetic diet 04/23/17 19:28 Cellulitis continues to improve. Convert to oral antibiotics with pen VK 500 mg tid. Persistent edema left upper [id number] by Doppler given superficial thrombophlebitis noted on admission. Edema right upper extremity due to IV infiltrating but weight is up, supplemental Lasix dose given 1 IV. Benadryl increased to 50 mg every 4 when necessary, Zyrtec 10 mg daily scheduled for pruritus. Diabetes well controlled. Hemoglobin has trended down-recheck in a.m. may be dilutional. 04/23/17 19:32
[2017-04-23] MEDS: AMITRIPTYLINE 100 MG TABLET PO SCH (21:46)
[2017-04-23] MEDS: MELATONIN 1 MG TABLET PO SCH (21:47)
[2017-04-24] MEDS: LEVOTHYROXINE 150 MCG TABLET PO SCH (06:09)
[2017-04-24] MEDS: PANTOPRAZOLE 20 MG TABLET PO SCH (06:09)
[2017-04-24] MEDS: PENICILLIN V POTASSIUM 250 MG TABLET PO SCH ×2 (06:13→11:19)
[2017-04-24] MEDS: CLOPIDOGREL 75 MG TABLET PO SCH (09:31)
[2017-04-24] MEDS: SENNA + DOCUSATE TABLET PO SCH (09:31)
[2017-04-24] MEDS: DULOXETINE 60 MG CAPSULE PO SCH (09:31)
[2017-04-24] MEDS: VITAMIN E 400 UNIT CAPSULE PO SCH (09:32)
[2017-04-24] MEDS: TAMOXIFEN 10 MG TABLET PO SCH (09:32)
[2017-04-24] MEDS: PREGABALIN 150 MG CAPSULE PO SCH (09:33)
[2017-04-24] MEDS: METFORMIN 500 MG TABLET PO SCH (09:33)
[2017-04-24] MEDS: MULTI-VITAMIN PLAIN TABLET PO SCH (09:33)
[2017-04-24] MEDS: CETIRIZINE 10 MG TABLET PO SCH (09:33)
[2017-04-24] MEDS: FUROSEMIDE 40 MG TABLET PO SCH (09:33)
[2017-04-24] MEDS: MAGNESIUM OXIDE 400 MG TABLET PO SCH (09:34)
[2017-04-24] MEDS: ASPIRIN *EC* 81 MG TABLET PO SCH (09:34)
[2017-04-24] MEDS: ASCORBIC ACID 500 MG TABLET PO SCH (09:34)
[2017-04-24] MEDS: CYCLOBENZAPRINE 10 MG TABLET PO SCH (09:34)
--- NOTE | 2017-04-24 15:17 | Discharge Summary ---
Discharge Plan - [facility] Instructions: Acute Headache (GEN), Cellulitis (GEN) Prescriptions: New Penicillin Vk Tab [Pen Vk Tab] 500 mg PO AC #21 Acetaminophen [Tylenol] 1,000 mg PO Q5H PRN PRN Reason: Discomfort DiphenhydrAMINE [Benadryl] 50 mg PO Q4H PRN cap PRN Reason: Itching Cetirizine [Zyrtec] 10 mg PO DAILY #20 Continue Pregabalin Cap [Lyrica] 150 mg PO BID #0 Duloxetine HCl [Cymbalta] 60 mg PO BID #0 Amitriptyline HCl 100 mg PO DAILY #0 tab Tamoxifen Citrate 20 mg PO DAILY #0 Furosemide [Lasix] 20 mg PO DAILY #0 tab Potassium Chloride 10 meq PO DAILY #0 cap Clopidogrel Bisulfate [Plavix] 75 mg PO DAILY #0 tab Esomeprazole [NEXIUM 20 mg Capsule] 20 mg PO DAILY #0 tab Vitamin E 400 unit PO DAILY Magnesium Oxide [Magnesium] 400 mg PO DAILY Melatonin 3 mg PO HS Levothyroxine Tab [Synthroid] 150 mcg PO DAILY Cyclobenzaprine [Flexeril] 10 mg PO TID Tramadol [Ultram] 50 mg PO Q6H PRN PRN Reason: Pain Metformin HCl 500 mg PO DAILY #0 tab Aspirin [Aspir 81] 81 mg PO DAILY #0 Oxycodone HCl/Acetaminophen [Oxycodone-Acetaminophen 5-325] 1 - 2 tab PO Q4H PRN #0 tab PRN Reason: Pain Ascorbic Acid [Vitamin C] 250 mg PO DAILY #0 Multivitamin [Multi-Vitamin Daily] 1 tab PO DAILY #0 Cholecalciferol [Vitamin D-3] 1 tab PO DAILY Metoprolol Tartrate [Lopressor] 25 mg PO BIDWM SUMAtriptan [Imitrex] 6 mg SQ PRN PRN PRN Reason: Headache - Disposition 01 Discharged Home, Self-Care
--- NOTE | 2017-04-24 15:39 | Discharge Summary ---
Discharge Information Date of admission: 04/21/17 11:32 Anticipated date of discharge: 04/24/17 Attending Physician: Inna Ivey MD Primary care physician: Toi Yost MD Consults: 04/21/17 13:01 Pharmacy Consult [CONS] Routine Pharmacy Consult: Vancomycin - Discharge Diagnosis (1) Cellulitis Qualifiers: Site of cellulitis of extremity: lower extremity Laterality: left Status: Acute (2) Severe sepsis Status: Acute (3) Superficial thrombophlebitis Qualifiers: Superficial thrombophlebitis-Involved body area: upper extremity Laterality : left Qualified Code(s): I80.8 - Phlebitis and thrombophlebitis of other sites Status: Acute (4) Migraine Qualifiers: Intractability: not intractable Status: Acute (5) History of aortic valve replacement Status: Chronic (6) Breast cancer Qualifiers: Patient sex: female Laterality: left Problem Details: completed chemo in 2015 s/p b/l mastectomy Status: Resolved (7) Pruritic dermatitis Status: Acute (8) Edema Qualifiers: Edema type: generalized Qualified Code(s): R60.1 - Generalized edema Status: Resolved - Laboratory Labs: 04/24/17 04:29 04/24/17 04:29 White count on admission 13.9 (85 neutrophils, 9 lymphocytes) with hemoglobin 12.4. Comprehensive metabolic panel on admission was unremarkable, lactic acid 2.8, procalcitonin <0.05 - Microbiology Blood cultures 2 negative at discharge after 3 days - Radiology Radiology: X-rays of the left forearm and humerus on admission demonstrated no soft tissue or bony abnormalities. Left upper extremity venous Doppler on admission revealed poor compressibility in an accessory vein near the proximal brachial vein suggestive of thrombus. There is no evidence of DVT however. Repeat Doppler on 04/24 demonstrated 3-4 cm superficial area of noncompressibility near the proximal brachial vein consistent with superficial thrombophlebitis. Again no DVT was reported. History of Present Illness HPI: Amber Hernandez is a 46 y/o lady who noticed some left arm pain before going to bed on 04/20/17. She woke up around 0300 and noticed it was bright red and was a little puffy. She had a fever and chills at home. She's also had a migraine for the last 3 days, unrelieved with her usual medications (excedrine migraine, sumatriptan, percocet, muscle relaxer). Along with her migraine, she has nausea , photophobia, and mild lightheadedness and weakness. She reports a tiny cough from the pneumonia she had a few weeks ago, but it's nonproductive and overall much improved (she was admitted to [facility] [place] 03/31-04/03). She has an upset stomach but no pain. She hasn't been eating very well but has been trying to keep up on fluids. She has been sleeping a lot - trying to sleep off the migraine. She's having some trouble remembering details. She has generalized muscular pain secondary to fibromyalgia, which has been worse than usual. No changes in urination or bowel habits but does have some abdominal bloating. Denies rashes but she tends to bruise easily. She denies any injuries or abrasions to her left arm. In the ED, she was found to have a WBC of 13.9 and lactate of 2.9. She was febrile at 101 in the ED and was also tachycardic. Chemistries were unremarkable. An ultrasound of her left arm showed superficial thrombophlebitis but no DVT. She was started on Vancomycin and Zosyn for cellulitis, and admitted under the hospitalist service to inpatient status. LOS is expected to exceed 2 overnights for need of aggressive treatment for severe sepsis and systemic antibiotics. Hospital Course Hospital course: Mrs. Hernandez was hospitalized with cellulitis of the left forearm/upper arm and signs consistent with severe sepsis including fever, tachycardia, leukocytosis, and a lactic acid of 2.9. Exam findings were suggestive of strep cellulitis. Due to underlying diabetes she was started on expanded antibiotics with vancomycin and Zosyn pending blood cultures. She was converted to Pen VK as a single agent on 04/23 when blood cultures were negative at 48 hours and arm was clinically improved. She was stable for discharge the following day after repeat venous Doppler was without evidence of deep extension of the suggested superficial thrombus seen on admission. Warm packs and nonsteroidals were recommended to help with management of superficial thrombophlebitis and I've asked that she follow-up with Dr. Kwan regarding its presence. Of note she did not have an IV in the left arm during her prior hospitalization. She developed moderate pruritus in the left upper extremity with treatment but did not develop generalized rash or evidence of drug reaction. Symptomatic treatment with Benadryl and Zyrtec were initiated. Supplemental doses of Lasix were given due to fluid retention in the left arm for last 2 days of the hospitalization with improvement. Home medications were continued throughout the hospitalization for breast cancer and prior aortic valve replacement. On admission the patient had a migraine which was treated with Toradol and Phenergan providing symptomatic improvement. Patient was felt stable for discharge on 04/24. At this time she denies dyspnea and reports edema in her lower extremities and right hand have improved after supplemental diuretics yesterday. Edema in the left upper extremity and erythema have improved from yesterday. There is +1 edema in the left upper extremity with very faint erythema in the left forearm and virtually no residual erythema above the elbow. Respirations are nonlabored with good airflow and clear lung sounds. There is no peripheral edema in the lower extremities. Repeat venous Doppler again shows superficial thrombophlebitis as previously described. Blood cultures remain negative and the patient is afebrile. Amber is asked to follow up in Dr. Yost office later this week. Pen VK will be continued for 7 additional days to complete 10 days therapy. >30 minutes spent on patient care and discharge care coordination today on the date of discharge. -- Discharge Plan - Med Rec/Dispo Lou Instructions: Cellulitis (GEN), Acute Headache (GEN) Prescriptions: New Penicillin Vk Tab [Pen Vk Tab] 500 mg PO AC #21 Acetaminophen [Tylenol] 1,000 mg PO Q5H PRN PRN Reason: Discomfort DiphenhydrAMINE [Benadryl] 50 mg PO Q4H PRN cap PRN Reason: Itching Cetirizine [Zyrtec] 10 mg PO DAILY #20 Continue Pregabalin Cap [Lyrica] 150 mg PO BID #0 Duloxetine HCl [Cymbalta] 60 mg PO BID #0 Amitriptyline HCl 100 mg PO DAILY #0 tab Tamoxifen Citrate 20 mg PO DAILY #0 Furosemide [Lasix] 20 mg PO DAILY #0 tab Potassium Chloride 10 meq PO DAILY #0 cap Clopidogrel Bisulfate [Plavix] 75 mg PO DAILY #0 tab Esomeprazole [NEXIUM 20 mg Capsule] 20 mg PO DAILY #0 tab Vitamin E 400 unit PO DAILY Magnesium Oxide [Magnesium] 400 mg PO DAILY Melatonin 3 mg PO HS Levothyroxine Tab [Synthroid] 150 mcg PO DAILY Cyclobenzaprine [Flexeril] 10 mg PO TID Tramadol [Ultram] 50 mg PO Q6H PRN PRN Reason: Pain Metformin HCl 500 mg PO DAILY #0 tab Aspirin [Aspir 81] 81 mg PO DAILY #0 Oxycodone HCl/Acetaminophen [Oxycodone-Acetaminophen 5-325] 1 - 2 tab PO Q4H PRN #0 tab PRN Reason: Pain Ascorbic Acid [Vitamin C] 250 mg PO DAILY #0 Multivitamin [Multi-Vitamin Daily] 1 tab PO DAILY #0 Cholecalciferol [Vitamin D-3] 1 tab PO DAILY Metoprolol Tartrate [Lopressor] 25 mg PO BIDWM SUMAtriptan [Imitrex] 6 mg SQ PRN PRN PRN Reason: Headache - Disposition 01 Discharged Home, Self-Care
--- NOTE | 2017-04-25 07:03 | Ultrasound Report ---
Indication: edema/thrombophlebitis prior exam PROCEDURE: US venous doppler UE LT: Encounter: Initial Comparison: April 21, 2017 Technique: Color Doppler duplex and grayscale sonographic imaging of the left upper extremity was performed. FINDINGS: There is no evidence for acute deep venous thrombosis in the left arm. The left internal jugular, subclavian, axillary and paired brachial veins were evaluated; compression and augmentation were applied where possible. In addition, color and pulsed Doppler demonstrate appropriate spontaneous flow, cardiac pulsatility and variation with respiration. Area of thrombosis. The brachial vein is again seen which appears to be an unnamed accessory vein. This area extends for approximately 3 to 4 cm in length. IMPRESSION: No evidence of acute DVT in the left upper extremity. Continued superficial thrombophlebitis. There is a preliminary report by [facility]. .
== END 2017-04-24 16:20 | disposition home or self-care (01) | DRG 872 ==
LOC: ED 08:21 → MED 11:32
PROVIDERS: ADMIT Internal Medicine; ATTEND Internal Medicine